=== PATIENT | female | born 1980 ===

== ENCOUNTER 2017-08-25 12:47 | Emergency (ER) | payer OTHER ==
[2017-08-25] MEDS ORDERED: 0.9 % SODIUM CHLORIDE 1,000 ML BAG IV ONE (13:00)
[2017-08-25] MEDS ORDERED: ONDANSETRON HCL IV 4 MG/2 ML VIAL IV ONE (13:00)
--- NOTE | 2017-08-25 13:03 | Emergency Department Record ---
History of Present Illness - General Chief Complaint: Back Pain/Injury Stated Complaint: ABDOMINAL/BACK PAIN Time Seen by Provider: 08/25/17 12:56 Source: Patient Mode of Arrival: Ambulatory Limitations: No limitations - History of Present Illness Initial Comments: The patient is here due to AP for the last week. It initially was intermittent but now has been more constant. The pain is a sharp stabbing pain in the epigastric area that intermittently radiates to the back. Eating does make the pain worse at times and she has had nausea and vomiting today with it. The patient did go to an last week in [place] and was started on Zantac. She denies any hx of abdominal surgeries. MD Complaint: Other Onset/Timin -: Days(s) Similar Symptoms Previously: No Place: Home Severity scale (1-10): 8 Quality: Sharp Consistency: Constant Improves With: None Worsens With: Eating Context: Unknown Associated Symptoms: Nausea/vomiting - Related Data Home Medications Medication Instructions Recorded Confirmed Last Taken No Home Med [NO HOME MEDS] 08/25/17 08/25/17 Unknown Allergies Allergy/AdvReac Type Severity Reaction Status Date / Time No Known Drug Allergies Allergy Verified 08/25/17 12:56 Travel Screening - Travel/Exposure Within Last 30 Days Have you traveled within the last 30 days?: No Review of Systems Constitutional: Denies: Chills, Fever Eyes: Denies: Eye discharge ENT: Denies: Congestion Respiratory: Denies: Cough, Dyspnea Past Medical History - SOCIAL HISTORY Smoking Status: Never smoker Alcohol Use: None Drug Use: None - RESPIRATORY Hx Respiratory Disorders: No - CARDIOVASCULAR Hx Cardio Disorders: No - NEURO Hx Neuro Disorders: No - GI Hx GI Disorders: No - Hx Genitourinary Disorders: No - ENDOCRINE Hx Endocrine Disorders: No - MUSCULOSKELETAL Hx Musculoskeletal Disorders: No - PSYCH Hx Psych Problems: No - HEMATOLOGY/ONCOLOGY Hx Hematology/Oncology Disorders: No Family Medical History Any Significant Family History?: No Physical Exam - General General Appearance: Alert, Oriented x3, Cooperative, No acute distress - Head Head exam: Atraumatic, Normocephalic, Normal inspection - Eye Eye exam: Normal appearance, PERRL - ENT Throat exam: Normal inspection. negative: Tonsillar erythema, Tonsillar exudate - Neck Neck exam: Normal inspection, Full ROM. negative: Tenderness - Respiratory Respiratory exam: Normal lung sounds bilaterally. negative: Respiratory distress - Cardiovascular Cardiovascular Exam: Regular rate, Normal rhythm, Normal heart sounds - GI/Abdominal GI/Abdominal exam: Soft, Normal bowel sounds, Tenderness (There is significant RUQ tenderness to palpaion.). negative: Distended, Guarding, Rebound, Rigid - Extremities Extremities exam: Normal inspection, Full ROM, Normal capillary refill. negative: Tenderness Course Vital Signs 08/25/17 12:52 Temperature 97.5 F L Pulse Rate 93 H Respiratory 20 Rate Blood Pressure 127/79 Pulse Ox 100 - Reevaluation(s) Reevaluation #1: The patient is back from [place] and is feeling better. I did explain the [place] results with the patient and the need to be transferred to a larger hospital. The patient and [place] [facility] [place] much thought and discussion. I then did discuss the case with Dr. Beebe at [facility] [place] he did accept the patient as a direct admit. 08/25/17 14:58 08/25/17 15:27 Reevaluation #2: I then did discus the case with Dr. Garcia in the ER and she does accept the patient in an ER to ER transfer. 08/25/17 15:35 Medical Decision Making - Lab Data Result diagrams: 08/25/17 13:15 08/25/17 13:15 Disposition Disposition: Transfer Clinical Impression: Adenomyomatosis of gallbladder Disposition: Acute Care Hospital Transfer Transfer To: [facility] [place] Reason For Transfer: Surgery Accepting Physician: Dr. Portillo. Time Discussed w/Accepting Physician: 15:38 Condition: (2) Stable Instructions: Cholecystitis (ED) Additional Instructions: Please proceed directly to the ER at [facility] [place] evaluation. Please do not eat on the way. Forms: Patient Portal Access Time of Disposition: 15:38 Quality - Quality Measures Quality Measures: N/A - Blood Pressure Screening View Details: Yes Does Patient Have Any of the Following: No Blood Pressure Classification: Pre-Hypertensive BP Reading Systolic Measurement: 127 Diastolic Measurement: 79 Screening for High Blood Pressure: < Pre-Hypertensive BP, F/U Documented > [ G8950] Pre-Hypertensive Follow-up Interventions: Referral to alternative/primary care provider.
[2017-08-25] MEDS ORDERED: HYDROMORPHONE HCL 2 MG/ML VIAL IVP ONE (13:06)
[2017-08-25 13:25] LABS: HEMATOCRIT 40.8 % (35.0-47.0); HEMOGLOBIN 12.7 gm/dl (11.6-16.0); MEAN CELL VOLUME 71.5 fl (81-97); MEAN CORPUSCULAR HEMOGLOBIN 22.2 pg (27-33); MEAN CORPUSCULAR HGB CONC 31.1 g/dl (32-36); MEAN PLATELET VOLUME 10.4 fl (7.4-10.4); PLATELET COUNT 336 K/uL (130-400); RED BLOOD COUNT 5.71 M/uL (3.80-5.40); RED CELL DISTRIBUTION WIDTH 17.9 % (11.5-14.5); WHITE BLOOD COUNT W/O DIFF 8.3 K/uL (4.2-12.2)
[2017-08-25 13:34] LABS: PLATELET ESTIMATE NORMAL (NORMAL)
[2017-08-25 13:39] LABS: BLOOD UREA NITROGEN 9 mg/dL (6-20); CREATININE 0.6 mg/dL (0.5-0.9); EST GLOMERULAR FILTRATION RATE > 60 mL/min; TOTAL PROTEIN 8.3 g/dL (6.6-8.7)
[2017-08-25 13:41] LABS: GLUCOSE,RANDOM 99 mg/dL (74-109)
[2017-08-25 13:44] LABS: ALBUMIN 4.5 g/dL (4.0-5.0); ALKALINE PHOSPHATASE 172 U/L (35-104); ALT/SGPT 146 U/L (<33); AST/SGOT 157 U/L (10.0-35.0); BILIRUBIN,DIRECT 0.8 mg/dL (0-0.3); LIPASE 33 U/L (13-60)
--- NOTE | 2017-08-26 09:19 | Emergency Department Record ---
History of Present Illness - General Chief Complaint: Back Pain/Injury Stated Complaint: ABDOMINAL/BACK PAIN Time Seen by Provider: 08/25/17 12:56 Source: Patient Limitations: No limitations - History of Present Illness Onset/Timin -: Days(s) Similar Symptoms Previously: No Place: Home Severity scale (1-10): 8 Quality: Sharp Consistency: Constant Improves With: None Worsens With: Eating Context: Unknown Associated Symptoms: Nausea/vomiting - Related Data Home Medications Medication Instructions Recorded Confirmed Last Taken No Home Med [NO HOME MEDS] 08/25/17 08/25/17 Unknown Allergies Allergy/AdvReac Type Severity Reaction Status Date / Time No Known Drug Allergies Allergy Verified 08/25/17 12:56 Travel Screening - Travel/Exposure Within Last 30 Days Have you traveled within the last 30 days?: No Review of Systems Constitutional: Denies: Chills, Fever Eyes: Denies: Eye discharge ENT: Denies: Congestion Respiratory: Denies: Cough, Dyspnea Cardiovascular: Denies: Chest pain Endocrine: Denies: Fatigue Gastrointestinal: Reports: Abdominal pain, Nausea, Vomiting Genitourinary: Denies: Dysuria Musculoskeletal: Denies: Back pain Skin: Denies: Bruising Neurological: Denies: Confusion, Headache Past Medical History - SOCIAL HISTORY Smoking Status: Never smoker Alcohol Use: None Drug Use: None - RESPIRATORY Hx Respiratory Disorders: No - CARDIOVASCULAR Hx Cardio Disorders: No - NEURO Hx Neuro Disorders: No - GI Hx GI Disorders: No - Hx Genitourinary Disorders: No - ENDOCRINE Hx Endocrine Disorders: No - MUSCULOSKELETAL Hx Musculoskeletal Disorders: No - PSYCH Hx Psych Problems: No - HEMATOLOGY/ONCOLOGY Hx Hematology/Oncology Disorders: No Family Medical History Any Significant Family History?: No Physical Exam - General Limitations: No limitations Course Vital Signs 08/25/17 08/25/17 08/25/17 12:52 14:31 16:10 Temperature 97.5 F L 97.5 F L Pulse Rate 93 H 71 Pulse Rate [ 81 Pulse Ox Probe] Respiratory 20 20 20 Rate Blood Pressure 127/79 114/65 Blood Pressure 101/66 [Right Arm] Pulse Ox 100 98 98 Medical Decision Making - Lab Data Result diagrams: 08/25/17 13:15 08/25/17 13:15 Lab Results 08/25/17 08/25/17 08/25/17 Range/Units 13:00 13:15 13:15 WBC 8.3 (4.2-12.2) K/uL RBC 5.71 H (3.80-5.40) M/uL Hgb 12.7 (11.6-16.0) gm/dl Hct 40.8 (35.0-47.0) % MCV 71.5 L (81-97) fl MCH 22.2 L (27-33) pg MCHC 31.1 L (32-36) g/dl RDW 17.9 H (11.5-14.5) % Plt Count 336 (130-400) K/uL MPV 10.4 (7.4-10.4) fl Neutrophils % 79.0 (47-80) % Eosinophils % Not Reportable Basophils % Not Reportable Lymphocytes 14.0 L (16-45) % Monocytes 7.0 (0-9) % Platelet Estimate Normal (NORMAL) RBC Morphology Normal Sodium 139 (136-145) mmol/L Potassium 3.9 (3.4-4.5) mmol/L Chloride 99 (98-107) mmol/L Carbon Dioxide 25.0 (22-29) mmol/L Anion Gap 15.0 (7-16) BUN 9 (6-20) mg/dL Creatinine 0.6 (0.5-0.9) mg/dL Estimated GFR > 60 mL/min Random Glucose 99 (74-109) mg/dL Calcium 9.2 (8.6-10.0) mg/dL Total Bilirubin 1.30 H (0.2-1.0) mg/dL Direct Bilirubin 0.8 H (0-0.3) mg/dL AST 157 H (10.0-35.0) U/L ALT 146 H (<33) U/L Alkaline Phosphatase 172 H (35-104) U/L Total Protein 8.3 (6.6-8.7) g/dL Albumin 4.5 (4.0-5.0) g/dL Lipase 33 (13-60) U/L Serum HCG, Qual (NEGATIVE) Urine Color Cancelled Urine Appearance Cancelled Urine pH Cancelled Ur Specific [place] Cancelled Urine Protein Cancelled Urine Glucose (UA) Cancelled Urine Clinitest Cancelled Urine Ketones Cancelled Urine Blood Cancelled Urine Nitrite Cancelled Urine Bilirubin Cancelled Urine Ictotest Cancelled Prot Sulfosalicylic Acd Cancelled Urine Urobilinogen Cancelled Ur Leukocyte Esterase Cancelled Urine HCG, Qual Cancelled 08/25/17 Range/Units 13:15 WBC (4.2-12.2) K/uL RBC (3.80-5.40) M/uL Hgb (11.6-16.0) gm/dl Hct (35.0-47.0) % MCV (81-97) fl MCH (27-33) pg MCHC (32-36) g/dl RDW (11.5-14.5) % Plt Count (130-400) K/uL MPV (7.4-10.4) fl Neutrophils % (47-80) % Eosinophils % Basophils % Lymphocytes (16-45) % Monocytes (0-9) % Platelet Estimate (NORMAL) RBC Morphology Sodium (136-145) mmol/L Potassium (3.4-4.5) mmol/L Chloride (98-107) mmol/L Carbon Dioxide (22-29) mmol/L Anion Gap (7-16) BUN (6-20) mg/dL Creatinine (0.5-0.9) mg/dL Estimated GFR mL/min Random Glucose (74-109) mg/dL Calcium (8.6-10.0) mg/dL Total Bilirubin (0.2-1.0) mg/dL Direct Bilirubin (0-0.3) mg/dL AST (10.0-35.0) U/L ALT (<33) U/L Alkaline Phosphatase (35-104) U/L Total Protein (6.6-8.7) g/dL Albumin (4.0-5.0) g/dL Lipase (13-60) U/L Serum HCG, Qual Negative (NEGATIVE) Urine Color Urine Appearance Urine pH Ur Specific [place] Urine Protein Urine Glucose (UA) Urine Clinitest Urine Ketones Urine Blood Urine Nitrite Urine Bilirubin Urine Ictotest Prot Sulfosalicylic Acd Urine Urobilinogen Ur Leukocyte Esterase Urine HCG, Qual Disposition Clinical Impression: Adenomyomatosis of gallbladder Disposition: Acute Care Hospital Transfer Condition: (2) Stable Instructions: Cholecystitis (ED) Additional Instructions: Please proceed directly [place] [facility] [place]. Please do not eat on the way. Forms: Patient Portal Access Quality - Quality Measures Quality Measures: N/A - Blood Pressure Screening View Details: Yes Does Patient Have Any of the Following: No Blood Pressure Classification: Normal BP Reading Systolic Measurement: 114 Diastolic Measurement: 65 Screening for High Blood Pressure: < Normal BP, F/U Not Required > [G5001]
--- NOTE | 2017-08-26 19:31 | ULTRASOUND REPORT ---
EXAM: ULTRASOUND ABDOMEN, COMPLETE HISTORY: RIGHT UPPER QUADRANT ABDOMINAL PAIN. TECHNIQUE: Complete real-time ultrasound examination of the abdomen. COMPARISON: None. FINDINGS: The pancreas appears negative with no pancreatic mass or peripancreatic fluid collection evident. However, there is mild prominence of the common duct in the head of the pancreas measuring about 8 mm in diameter. Abdominal aorta appears negative with no aneurysm seen. The IVC was negative as seen. The liver appears negative with no hepatic mass or intrahepatic biliary dilatation seen. No definite gallstones are seen and no diffuse gallbladder wall thickening evident. No pericholecystic fluid collection evident. However, there was a persistent comet-tail type artifact seen emanating from the anterior wall of the gallbladder. This is nonspecific although commonly seen in an association with adenomyomatosis of the gallbladder. The common duct was seen in the port and also mildly dilated, about 8 mm. Etiology of this is uncertain with no obvious common duct calculus identified sonographically. Correlation with serum bilirubin suggested. The right kidney measures about 10 cm in length. There may be a small nonobstructing calculus within the right kidney. However, no hydronephrosis on the right evident. Spleen mildly generous in size measuring up to about 11.6 cm in length. No focal splenic mass evident. Left kidney appears negative measuring about 11 cm in length with no hydronephrosis evident. IMPRESSION: 1. NO GALLSTONES IDENTIFIED, ALTHOUGH THERE WAS A COMET-TAIL TYPE ARTIFACT RAISING THE POSSIBILITY OF ADENOMYOMATOSIS. 2. DILATATION OF THE COMMON DUCT. NO APPRECIABLE INTRAHEPATIC BILIARY DILATATION SEEN. NO ACTUAL GALLSTONES IDENTIFIED. CORRELATION WITH SERUM BILIRUBIN SUGGESTED. DEPENDING ON THE CLINICAL SETTING, FOLLOW-UP MRCP MAY BE USEFUL. 3. NO HYDRONEPHROSIS ON EITHER SIDE. THERE MAY BE A SMALL CENTRAL RIGHT RENAL CALCULUS EVIDENT. 4. MILD PROMINENCE OF THE SPLENIC SIZE WITH NO FOCAL SPLENIC MASS EVIDENT. JOB NUMBER: [id number] [facility]
== END 2017-08-25 16:13 | disposition short-term general hospital (02) ==
LOC: ER 12:47 → EDBD 12:47 → ER 16:13
DX: K82.8 Other specified diseases of gallbladder (principal); R10.13 Epigastric pain; R11.2 Nausea with vomiting, unspecified
CPT/HCPCS: 99285 ×2; 96374; 96375; 83690; 80076; 80048; 84703; 85027; 76700; J2405; J1170; J7030